=== PATIENT | female | born 2000 | race Hispanic/Latino ===

== ENCOUNTER 2020-12-11 10:48 | Emergency (ER) | payer SELFPAY ==
[~2020-12-11] VITALS: Ht 149.9 cm; Wt 39.5 kg
[2020-12-11] MEDS ORDERED: PEPT262T2 PO (11:21)
[2020-12-11] MEDS ORDERED: ONDANSETRON 4 MG ORAL DISINTEGRATING TAB PO ONE (11:55)
[2020-12-11 12:25] LABS: BASO % 0.2 % (0.0-1.0); EOS # 0.1 10^3/uL (0.0-0.5); EOS % 1.1 % (0.0-3.0); HEMATOCRIT 41.2 % (36.0-47.0); LYMPH # 0.9 10^3/uL (1.5-5.0); LYMPH % 7.3 % (24.0-44.0); MEAN CORPUSCULAR HEMOGLOBIN 28.4 pg (27.0-33.0); MEAN CORPUSCULAR VOLUME 83.6 fl (80.0-96.0); MONO # 0.6 10^3/uL (0.0-0.8); MONO % 4.6 % (2.0-8.0); NEUTROPHILS % 86.5 % (36.0-66.0); PLATELET COUNT, AUTOMATED 388 10^3/uL (150-450); RED BLOOD COUNT 4.93 10^6/uL (4.00-5.40); WHITE BLOOD COUNT 12.7 10^3/uL (4.0-10.0)
[2020-12-11 12:45] LABS: HCG, SERUM QUALITATIVE POSITIVE (NEGATIVE)
[2020-12-11 12:49] LABS: ALBUMIN 4.1 GM/DL (3.2-5.2); ALT/SGPT 15 U/L (12-78); BILIRUBIN,DIRECT 0.2 MG/DL (0.0-0.2); BILIRUBIN,TOTAL 0.6 MG/DL (0.2-1.0); BLOOD UREA NITROGEN 12 MG/DL (7-18); CALCIUM LEVEL 8.8 MG/DL (8.5-10.1); CARBON DIOXIDE LEVEL 24 MEQ/L (21-32); CHLORIDE LEVEL 107 MEQ/L (98-107); CREATININE FOR GFR 0.57 MG/DL (0.55-1.30); GLOMERULAR FILTRATION RATE > 60.0 (>60); GLUCOSE, FASTING 81 MG/DL (70-100); LIPASE 76 U/L (73-393); POTASSIUM SERUM 3.9 MEQ/L (3.5-5.1); SODIUM LEVEL 139 MEQ/L (136-145); TOTAL PROTEIN 7.9 GM/DL (6.4-8.2)
[2020-12-11 13:14] LABS: HCG, SERUM QUANTITATIVE 41 MIU/ML
[2020-12-11] MEDS ORDERED: ONDA4TAB6 PO (13:36)
[2020-12-11 13:43] VITALS: BP 102/63
--- NOTE | 2020-12-11 21:12 | ECGEPIP ---
[facility] - ED Test Date: 2020-12-11 Pat Name: DEL VALVERDE Department: Room: - Gender: Female [employer] Digger: MAURICIO : 2000 Requested By: NISHANT Torres PA-C Order Number: [id number] Reading MD: July Aleman Measurements Intervals [place] Rate: 71 P: -6 AL: 104 QRS: 85 QRSD: 86 T: 54 QT: 366 QTc: 397 Interpretive Statements Sinus rhythm with short AL No prior Electronically Signed on 12-11-2020 21:11:59 EDT by July Aleman
== END 2020-12-11 13:44 | disposition home or self-care (01) ==
LOC: M ED 10:48
DX: Z32.01 Encounter for pregnancy test, result positive (principal); O21.9 Vomiting of pregnancy, unspecified; O99.619 Diseases of the digestive system complicating pregnancy, unspecified trimester
CPT/HCPCS: 36415; 80048; 80076; 83690; 84702; 84703; 85025; 93005; 99284; Q0162